=== PATIENT | male | born 1980 | race Caucasian/White ===

== ENCOUNTER 2020-02-27 15:50 | Emergency (ER) | payer SELFPAY ==
[~2020-02-27] VITALS: Ht 165.1 cm; Wt 69.0 kg
[2020-02-27 15:53] VITALS: BP 142/90
== END 2020-02-27 16:18 | disposition left against medical advice (07) ==
LOC: ER 15:50
DX: Z53.21 Procedure and treatment not carried out due to patient leaving prior to being seen by health care provider (principal)